=== PATIENT | male | born 1940 | race Caucasian/White ===

== ENCOUNTER 2022-06-03 09:13 | Emergency (ER) | payer MEDICARE, BC ==
[~2022-06-03] VITALS: Ht 175.3 cm; Wt 99.8 kg
[2022-06-03] MEDS ORDERED: VALACYCLOVIR1000 MG PO (09:53)
[2022-06-03] MEDS ORDERED: PRED20 PO (09:53)
== END 2022-06-03 10:04 | disposition home or self-care (01) ==
LOC: ER 09:13
DX: G51.0 Bell's palsy (principal)
CPT/HCPCS: 99283